=== PATIENT | female | born 1975 | race Caucasian/White ===

== ENCOUNTER 2016-06-20 12:04 | Emergency (ER) | payer OTHER ==
[~2016-06-20 12:04] MED LIST: HABITROL21 MG TOP; LACTINEX1 EACH PO; LEVAQUIN500 MG PO; LORTAB 5-325 M1 EACH PO; NEURONTIN300 MG PO; TUSSIONEX5 ML PO
== END 2016-06-20 13:41 | disposition home or self-care (01) ==
LOC: FER 12:04
DX: H60.92 Unspecified otitis externa, left ear (principal); H92.01 Otalgia, right ear; F17.210 Nicotine dependence, cigarettes, uncomplicated; Z86.69 Personal history of other diseases of the nervous system and sense organs; Z88.6 Allergy status to analgesic agent; Z88.8 Allergy status to other drugs, medicaments and biological substances; Z96.22 Myringotomy tube(s) status
CPT/HCPCS: 99282

== ENCOUNTER 2016-09-18 13:36 | Emergency (ER) | payer OTHER | END 2016-09-18 15:32 | disposition home or self-care (01) | LOC: FER 13:36 | DX: H60.93 Unspecified otitis externa, bilateral (principal); F17.200 Nicotine dependence, unspecified, uncomplicated; Z86.69 Personal history of other diseases of the nervous system and sense organs; Z88.6 Allergy status to analgesic agent; Z88.8 Allergy status to other drugs, medicaments and biological substances | CPT/HCPCS: 99282 ==